=== PATIENT | female | born 1955 | race Caucasian/White ===

== ENCOUNTER → 2022-09-30 12:54 | Outpatient (BNVA) | payer MEDICARE, MEDICAID, SELFPAY | PROVIDERS: PCP Internal Medicine; Visit Provider Psychiatry & Neurology Neurology | DX: G25.2 Other specified forms of tremor (principal); R25.2 Cramp and spasm | CPT/HCPCS: 99212 ==

== ENCOUNTER 2023-03-31 09:22 | Outpatient (AMB) | payer OTHER, SELFPAY ==
--- NOTE | 2023-03-31 09:26 | MHC.OFFVIS ---
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 Pt reports that her propranolol discontinued due to her BP medication changed to lisinopril. She is doing ok, no changes in tremor- usually action tremors, worsened with anxiety. It can be bothersome when she does make up and drink liquid. She sleeps better with magnesium 400 mg qHS and trazodone 50 mg. Nocturnal leg cramping has improved with magnesium. [facility] Medical History Diabetes DJD (degenerative joint disease) HTN (hypertension) Hyperlipidemia Insomnia Obstructive sleep apnea Surgical History LAP-BAND surgery status Family History Mother No problems noted. Father No problems noted. Social History (Updated 03/31/23 @ 09:30 by Nai Cedillo [facility]) Alcohol intake: never Patient Tobacco Use Status: Never used Tobacco Physical Exam Vital Signs: Last Vital Signs Pulse 64 03/31/23 09:30 BP 120/72 03/31/23 09:30 Pulse Ox 99 03/31/23 09:30 Oxygen Delivery Method Room Air 03/31/23 09:30 Const Orientation/consciousness: patient oriented x3 Eyes Pupils: Equal, round and reactive pupils present Neuro Other: Stooped , tilted to the right , right shoulder drooped. Good stride Mild decreased arm swings No rest tremors General: patient oriented x3, tone normal and moves all extremities Cranial nerves: Yes CN's II-XII intact bilaterally, Yes Facial sensation intact/muscles of mastication intact, Yes Equal, round and reactive pupils present, Yes Bilaterally intact EOM present, Yes Normal facial strength present and Yes Midline tongue present Cognition (Neuro): normal cognition Speech: Other speech findings present (Neuro) (no hypophonia) Motor exam (neuro): 5/5 motor strength present throughout and Normal motor muscle tone present throughout Coordination: cucibx-sv-sogh test normal Psych Affect: Anxious affect present Assessment & Plan Assessment & Plan (1) Essential and other specified forms of tremor: Comment: No evidence of parkinsons Code(s): G25.0 - Essential tremor; G25.2 - Other specified forms of tremor (2) Nocturnal muscle cramps: Code(s): R25.2 - Cramp and spasm Plan Advised patient to try gabapentin 100 mg BID for tremor. Continue to take magnesium 400mg qhs for leg cramps and trazodone 50 mg for sleep. Medications: New gabapentin 100 mg PO BID 60 caps 2RF 30 days Coding Level of Care Code Est Pt Level 3 (75413) Diagnoses Essential and other specified forms of tremor G25.0; G25.2 Nocturnal muscle cramps R25.2
[2023-03-31 09:30] VITALS: BP 120/72; PULSE 64; O2SAT 99
== END 2023-03-31 09:57 | disposition home or self-care (01) ==
PROVIDERS: Visit Provider Nurse Practitioner Family
DX: G25.0 Essential tremor (principal); G25.2 Other specified forms of tremor
CPT/HCPCS: 99213

== ENCOUNTER → 2023-03-31 09:22 | Outpatient (BNVA) | payer MEDICARE, MEDICAID, SELFPAY | PROVIDERS: Visit Provider Nurse Practitioner Family | DX: G25.2 Other specified forms of tremor (principal); R25.2 Cramp and spasm | CPT/HCPCS: 99212 ==

== ENCOUNTER 2023-11-16 09:30 | Outpatient (AMB) | payer OTHER, MEDICAID, SELFPAY ==
--- NOTE | 2023-11-16 09:32 | A.OFFVIS_ITS ---
Vital Signs 11/16/23 09:33 Height 5 ft 5 in Weight 148 lb 4 oz BMI 24.7 BP 90/52 L Blood Pressure Location Rt brachial Position Sitting Respiration 17 Pulse 67 Pulse Source Pulse Oximeter Pulse Oximetry (%) 99 Oxygen Delivery Method Room Air Intake Visit Reasons: 6mo f/u tremor-CONF Intake Note: Pt presents for a 6 month follow up for tremors. Allergies No Known Allergies Allergy (Verified 11/16/23 09:33) Medication List - Last Reconciled 11/16/23 by Julia San MD alendronate (Fosamax) 70 mg PO QWEEK blood sugar diagnostic ([employer] Ver[employer] test strips) As directed buspirone 7.5 mg PO BID cholecalciferol (vitamin D3) (Vitamin D3) 50 mcg PO DAILY clonazepam 0.5 mg PO BEDTIME estradiol mg subcut glipizide 5 mg PO DAILY lancets ([employer] Delica Plus Lancet) As directed lisinopril 5 mg PO DAILY trazodone 50 mg PO BEDTIME PRN HPI Comments Details: 68 y/o female patient presents for follow up of tremors and nocturnal leg cramps. Gabapentin did not help her and also her liver functions were abnormal so gabapentin was stopped. she tried propranolol and did not help her. She is doing ok, no changes in tremor- usually action tremors, worsened with anxiety.clonazepam helps . She sleeps better with magnesium 400 mg qHS and trazodone 50 mg. Nocturnal leg cramping has improved with magnesium. [facility] Medical History DJD (degenerative joint disease) HTN (hypertension) Hyperlipidemia Obstructive sleep apnea Insomnia Diabetes Surgical History LAP-BAND surgery status Family History Mother No problems noted. Father No problems noted. Social History Alcohol intake: never Patient Tobacco Use Status: Never used Tobacco Physical Exam Vital Signs: Last Vital Signs Pulse 67 11/16/23 09:33 Resp 17 11/16/23 09:33 BP 90/52 L 11/16/23 09:33 Pulse Ox 99 11/16/23 09:33 Oxygen Delivery Method Room Air 11/16/23 09:33 BMI result Body Mass Index 24.7 Const Orientation/consciousness: patient oriented x3 Eyes Pupils: Equal, round and reactive pupils present Neuro Other: Stooped , tilted to the right , right shoulder drooped. Good stride Mild decreased arm swings No rest tremors very mild postural tremors General: patient oriented x3, tone normal and moves all extremities Cranial nerves: Yes CN's II-XII intact bilaterally, Yes Facial sensation intact/muscles of mastication intact, Yes Equal, round and reactive pupils present, Yes Bilaterally intact EOM present, Yes Normal facial strength present and Yes Midline tongue present Cognition (Neuro): normal cognition Motor exam (neuro): 5/5 motor strength present throughout and Normal motor muscle tone present throughout Coordination: [id number]-qg-mwwl test normal Psych Affect: Anxious affect present Assessment & Plan Assessment & Plan (1) Essential and other specified forms of tremor: Comment: No evidence of parkinsons, likely familial Code(s): G25.0 - Essential tremor; G25.2 - Other specified forms of tremor Category: Medical (2) Nocturnal muscle cramps: Code(s): R25.2 - Cramp and spasm Category: Medical Plan Continue to take magnesium 400mg qhs for leg cramps and trazodone 50 mg for sleep. will monitor the tremors .will consider primidone if her tremors worsen Medications: New magnesium oxide 250 mg PO DAILY 30 tabs 6RF Coding Level of Care Code Est Pt Level 4 (68452) Diagnoses Essential and other specified forms of tremor G25.0; G25.2 Nocturnal muscle cramps R25.2
[2023-11-16 09:33] VITALS: BP 90/52; PULSE 67; RESP 17; O2SAT 99; BMI 24.7
== END 2023-11-16 09:56 | disposition home or self-care (01) ==
PROVIDERS: PCP Internal Medicine; Visit Provider Psychiatry & Neurology Neurology
DX: G25.0 Essential tremor (principal); G25.2 Other specified forms of tremor
CPT/HCPCS: 99214

== ENCOUNTER → 2023-11-16 09:30 | Outpatient (BNVA) | payer OTHER, SELFPAY | PROVIDERS: PCP Internal Medicine; Visit Provider Psychiatry & Neurology Neurology | DX: G25.0 Essential tremor (principal); R25.2 Cramp and spasm | CPT/HCPCS: 99212 ==

== ENCOUNTER 2025-01-11 11:22 | Outpatient (AMB) | payer MEDICARE, MEDICAID, SELFPAY ==
--- NOTE | 2025-01-11 11:24 | MHC.OFFVIS ---
Vital Signs 01/11/25 11:26 Height 5 ft 5 in Weight 156 lb BMI 26.0 BP 110/70 Blood Pressure Location Rt brachial Position Sitting Pulse 66 Pulse Source Pulse Oximeter Pulse Oximetry (%) 97 Oxygen Delivery Method Room Air Intake Visit Reasons: Follow up Intake Note: Patient presents for follow up magnesium trial Allergies No Known Allergies Allergy (Verified 01/11/25 11:27) Medication List - Last Reconciled 01/11/25 by Julia San MD alendronate (Fosamax) 70 mg PO QWEEK blood sugar diagnostic ([employer] Verio test strips) As directed buspirone 7.5 mg PO BID cholecalciferol (vitamin D3) (Vitamin D3) 50 mcg PO DAILY estradiol mg subcut ezetimibe 10 mg PO DAILY glipizide 2.5 mg PO DAILY lancets ([employer] Delica Plus Lancet) As directed lisinopril 5 mg PO DAILY magnesium oxide 250 mg PO DAILY rosuvastatin 5 mg PO DAILY trazodone 150 mg PO BEDTIME PRN HPI Comments Details: 69 y/o female patient presents for follow up of tremors and nocturnal leg cramps. she is doing good with trazadone 150mg qhs buspar 10mg tid and [id number] qhs she is followed up by a psychiatrist Gabapentin did not help her and also her liver functions were abnormal so gabapentin was stopped. she tried propranolol and did not help her. She is doing ok, no changes in tremor- usually action tremors, worsened with anxiety . Nocturnal leg cramping has improved with magnesium. [facility] Medical History DJD (degenerative joint disease) HTN (hypertension) Hyperlipidemia Obstructive sleep apnea Insomnia Diabetes Surgical History LAP-BAND surgery status Family History Mother No problems noted. Father No problems noted. Social History Alcohol intake: never Patient Tobacco Use Status: Never used Tobacco Physical Exam Vital Signs: Last Vital Signs Pulse 66 01/11/25 11:26 BP 110/70 01/11/25 11:26 Pulse Ox 97 01/11/25 11:26 Oxygen Delivery Method Room Air 01/11/25 11:26 BMI result Body Mass Index 26.0 Const Orientation/consciousness: patient oriented x3 Eyes Pupils: Equal, round and reactive pupils present Neuro Other: Stooped , tilted to the right , right shoulder drooped. Good stride Mild decreased arm swings No rest tremors no postural tremors General: patient oriented x3, tone normal and moves all extremities Cranial nerves: Yes CN's II-XII intact bilaterally, Yes Facial sensation intact/muscles of mastication intact, Yes Equal, round and reactive pupils present, Yes Bilaterally intact EOM present, Yes Normal facial strength present and Yes Midline tongue present Cognition (Neuro): normal cognition Motor exam (neuro): 5/5 motor strength present throughout and Normal motor muscle tone present throughout Coordination: wcgoph-xz-[id number] test normal Assessment & Plan Assessment & Plan (1) Essential and other specified forms of tremor: Comment: No evidence of parkinsons, likely familial Code(s): G25.0 - Essential tremor; G25.2 - Other specified forms of tremor Category: Medical (2) Nocturnal muscle cramps: Code(s): R25.2 - Cramp and spasm Category: Medical Plan Continue to take magnesium 400mg qhs for leg cramps and trazodone 150 mg for sleep. F/u psychiatry will monitor the tremors . Medications: New buspirone 10 mg PO TID Coding Level of Care Code Est Pt Level 4 (35864) Diagnoses Essential and other specified forms of tremor G25.0; G25.2 Nocturnal muscle cramps R25.2
[2025-01-11 11:26] VITALS: BP 110/70; PULSE 66; O2SAT 97; BMI 26.0
--- OUTSIDE RECORDS SUMMARY | 2025-01-11 13:42 | XMS_ITS | Data Portability ---
Author Organization [place] - [facility], [facility] N[facility] Address [address] [place] [address] Care Team Providers [facility] Name Role Phone [facility] Primary Care Provi wanda [facility]NAGEMENT OTHER Assessment Encounter Date Assessment Date Assessment LastModified by Organization Details LastModified Time 09/23/2021 09/23/2021 Time On Scene with Patient: 01:03:58 [email or web address] Not available 09/23/2021 20:09:25 Plan of Treatment Reminders Order Date Submit Date Provider Last Modified By Organization Details Last Modified Time Details Appointments None recorded. Lab BMP + ionized calcium, serum or plasma [id number] [address] [facility], [place], [address], 19:37:26 Referral None recorded. Procedures None recorded. Surgeries None recorded. Imaging None recorded. Medication Orders None recorded. Patient TargetsNo targets recorded. Patient Instructions Encounter Date Encounter Id Patient Instructions Last Modified By Organization Details Last Modified Time 09/23/2021 [id number] Thank you for yo ur visit with [facility] today. We cannot always find the exact cause of your symptoms during your initial visit. Please follow up with your primary care provider or specialist to be rechecked or seek medical attention if your symptoms do not go away or get worse. If you develop any new or worsening symptoms and need after hours care, please go to nearest ER and/or call 911. If you have additional concerns or develop a change in your condition between 8am-10pm, please call [facility] access hospital at [phone] to help navigate your care. [email or web address] Not available 09/23/2021 19:09:06 Reason for Referral None Reported. Results Created Date Observation Date Name Description Value Unit Range Abnormal Flag Note LastModifiedBy Organization Detail LastModifiedTime 09/24/19 22 09/23/2021 BMP + IONIZ ED CALCI UM, SERUM OR PLASM A glu 144 mg/dL 70-105 Not Available [address], [address], 09/23/2021 19:37:26 09/24/19 22 09/23/2021 BMP + IONIZ ED CALCI UM, SERUM OR PLASM A BUN 24 mg/dL 8-26 Not Available [address], [address], 09/23/2021 19:37:26 09/24/19 22 09/23/2021 BMP + IONIZ ED CALCI UM, SERUM OR PLASM A crea 0.7 mg/dL 0.6-1. 3 Not Available [address], [address], 09/23/2021 19:37:26 09/24/19 22 09/23/2021 BMP + IONIZ ED CALCI UM, SERUM OR PLASM A Na 137 mmol/ L 138-14 6 Not Available [address], [address], 09/23/2021 19:37:26 09/24/19 22 09/23/2021 BMP + IONIZ ED CALCI UM, SERUM OR PLASM A K 4.0 mmol/ L 3.5-4. 9 Not Available [address], [address], 09/23/2021 19:37:26 09/24/19 22 09/23/2021 BMP + IONIZ ED CALCI UM, SERUM OR PLASM A cL 102 mmol/ L 98-109 Not Available [address], [address], 09/23/2021 19:37:26 09/24/19 22 09/23/2021 BMP + IONIZ ED CALCI UM, SERUM OR PLASM A TCO2 23 mmol/ L 24-29 Not Available [address], [address], 09/23/2021 19:37:26 09/24/19 22 09/23/2021 BMP + IONIZ ED CALCI UM, SERUM OR PLASM A angap 18 mmol/ L 10-20 Not Available [address], [address], 09/23/2021 19:37:26 09/24/19 22 09/23/2021 BMP + IONIZ ED CALCI UM, SERUM OR PLASM A ica 1.24 mmol/ L 1.12-1 .32 Not Available [address], [address], 09/23/2021 19:37:26 09/24/19 22 09/23/2021 BMP + IONIZ ED CALCI UM, SERUM OR PLASM A HCT 32 %pcv 38-51 Not Available [address], [address], 09/23/2021 19:37:26 09/24/19 22 09/23/2021 BMP + IONIZ ED CALCI UM, SERUM OR PLASM A Hb 10.9 g/dL 12-17 Not Available [address], [address], 09/23/2021 19:37:26 Result Notes None recorded. Medical Equipment None Reported. Allergies No known drug allergies Medications Name Sig Start Date Stop Date Status Note LastModified by Organization Details LastModified Time metformin 500 mg tablet TAKE 2 TABLETS BY MOUTH DAILY (WITH BREAKFAST) . active Not Available Not Available No t Available simvastatin 40 mg tablet TAKE 1 TABLET BY MOUTH EVERYDAY AT BEDTIME active Not Available Not Available N ot Available lisinopril 5 mg tablet TAKE 1 TABLET BY MOUTH EVERY DAY active Not Available Not Available No t Available Yuvafem [address] TABLET VAGINALLY TWICE A WEEK. active Not Available Not Available No t Available Vitals Date Recorded Oxygen saturation Oxygen saturation in Arterial blood by Pulse oximetry Body temperature Respiratory rate Heart rate Systolic blood pressure Diastolic blood pressure Provider Name and Address Organization Details Last Updated DateTime 2 98 % 98 % 96.8 [degF] 16 /min 82 /min 92 mm[Hg] 44 mm[Hg] Not Available [facility] 19:12:11 Social History None recorded. Functional Status None recorded. Mental Status None recorded. Family History Relationship Description Onset Age of this Age Resolved Age Notes LastModified by Organization Details LastModified Time Father No current problems or disability [email or web address] Not available 02/2022 19:08:51 Mother No current problems or disability [email or web address] Not available 02/2022 19:08:51 Medical History Condition Response Diabetes Y Hypertension Y High Cholesterol Y Gynecological HistoryNo gynecological history recorded. Obstetrics History GPAL:G 0 P 0 0 0 0 Past Encounters Encounter ID Performer Location Encounter Start Date Encounter Closed Date Diagnosis/Indication Diagnosis SNOMED-CT Code Diagnosis ICD10 Code Diagnosis Note [id number] HARRIS Young FOR[facility] NAMED [facility] [address] [place] [address] 09/23/2021 19:05:47 09/24/2021 11:19:18 Fatigue 45872885 R53.83 Proper Personal Protective Equipment (PPE), including gloves, eye protection and masks were donned and doffed esau rosado and all equipment cleaned using approved technique with germicidal disposable wipes prior to and after care of this patient according to [facility]'s infection prevention protocols. Overview/H istory: 66 yo female with 10 hours of mild lethargy and an episode of feeling cold this AM is seen for eval. She currently feels well, is able to drink fluids, and reports feeling better now. She denies any focal complaints including no urinary symptoms Exam: NAD, nontoxic appearing. CN 2-12 wnl, no focal neuro deficits, lung and heart exam wnl, ambulated across room and lincoln from cough without difficulty or ataxia. speech is clear and coherent. no dizziness upon standing, oral mucous membranes wnl. DDx considered , but not limited to:UTI - no urinary symptoms, afebrile, no hx of UTICOVID - rapid test (-), no syndrome of symptomsme tabolic derrangeme nt - istat shows lytes, renal fx, bicarb wnlhypo/hy perglycemi a - gluc @ 144, pt diabetic, mildly elevated but not concerning for DKA or hypoglycem ic issuesothe r infecious etiology - afebrile, no focal complaints , pt feeling fine now.anemia - h+h mildly decreased, no bloody stools, no bloody vomitus, no hx of symptomati c anemia Work up/Results :sod 137k 4.0cl 102ca 1.24cho3 23glu 144bun 24cr 0.7hct 32hgb 10.9 Plan/Discu ssion:-dif ferential for lethargy is wide ranging-lo w suspicion for metabolic, glucose related, infectious , neurologic etiologies .-pt feels well now-pt appears very well-pt will hold lisinopril and call PCP tomorrow with followup on wednesday-ple ase discuss possible anemia, possible decrease of ernesto-i, and glucose monitoring Health Concerns Section Related Observation LastModified by Organization Detai ls LastModified Time None Recorded Concern Status LastModified by Organization Details LastModified Time None Recorded Advance Directives Directive None Recorded Payers Insurance Date Sequence Insurance Name Policy Number Policy Lopez Covered Member ID Lopez Member ID Guarantor Name 09/24/2021 1 [employer] - MEDICARE PREFERRED (MEDICARE REPLACEMENT HMO) [id number] Inessa Carrera [id number] Inessa Carrera 09/23/2021 1 *SELF PAY* Inessa Carrera [id number] Inessa Carrera 10/01/2021 1 [employer] - TOGETHER (MEDICAID HMO) [id number] Inessa Carrera [id number] Inessa Carrera Notes Date Note Type Note Provider Name and Address Organization Details Recorded Time 09/23/2021 text/html 66 yo female new to provider and DHpt reports starting today feeling cold around 10am[place] N V D Feverno abd painno chest pain / SOBno diarrheano back painno rashno urinary symptomsno rashno bug bitesrapid covid (-) today(+) po intake(+)BM (+)VOIDappt with PCP on wednesdayBP generally soft - pt on ernesto-i for renal protective effects not HTN per daughter HARRIS Young [address], [place], [address], [place] [facility] 09/23/2021 21:18:19 OBGyn Episode No OBEpisode recorded.
== END 2025-01-11 11:45 | disposition home or self-care (01) ==
LOC: HO.HSMS 11:22
PROVIDERS: PCP Internal Medicine; Visit Provider Psychiatry & Neurology Neurology
DX: G25.0 Essential tremor (principal); G25.2 Other specified forms of tremor
CPT/HCPCS: 99214

== ENCOUNTER → 2025-01-11 11:22 | Outpatient (BNVA) | payer MEDICARE, MEDICAID, SELFPAY | PROVIDERS: PCP Internal Medicine; Visit Provider Psychiatry & Neurology Neurology | DX: G25.0 Essential tremor (principal) | CPT/HCPCS: 99212 ==